=== PATIENT | male | born 1950 | race Caucasian/White ===

== ENCOUNTER 2018-03-02 14:31 | Inpatient (IN) | payer MEDICARE ==
[~2018-03-02] VITALS: Ht 180.3 cm; Wt 95.1 kg
[~2018-03-02 14:31] MED LIST: AMIO400T5 PO; AMLO10TA2 PO; ASPI-496 PO; ASPI-621 PO; ATOR10TA9 PO; ATOR40TA78 PO; CLOP75TA52 PO; FINA5TAB4 PO; FURO-92 PO; GEMF600T3 PO; HYDR12.58 PO; LORA2TAB PO; LOSA1TAB19 PO; LOSA50TA6 PO; METF10002 PO; OXYC-302 PO; OXYC5TAB2 PO; POTA20TA14 PO; POTA20TA6 PO
[2018-03-02] MEDS ORDERED: ASPIRIN 81 MG TABLET CHEW PO ONE (15:00)
[2018-03-02] MEDS ORDERED: PLEASE ENTER HEIGHT AND WEIGHT MC SCH (15:00)
[2018-03-02 15:27] LABS: ALANINE AMINOTRANSFERASE 39 U/L (12-78); ALBUMIN 4.3 g/dL (3.4-5.0); ANION GAP 7 mmol/L (5-15); CALCIUM 9.3 mg/dL (8.5-10.1); CHLORIDE 106 mmol/L (98-107); CREATININE 1.18 mg/dL (0.7-1.3)
[2018-03-02 15:28] LABS: BASOPHILS # (AUTO) 0.05 x10^3/uL (0-0.1); BASOPHILS % (AUTO) 1 % (0-1); EOSINOPHILS # (AUTO) 0.12 x10^3/uL (0-0.4); EOSINOPHILS % (AUTO) 2 % (1-7); LYMPHOCYTES # (AUTO) 2.72 x10^3/uL (1-3.4); LYMPHOCYTES % (AUTO) 39 % (22-44); MD NO; MEAN CORPUSCULAR HEMOGLOBIN 31.6 pg (27.5-34.5); MEAN CORPUSCULAR VOLUME 92.9 fL (81-97); MEAN PLATELET VOLUME 9.7 fL (7.4-10.4); MONOCYTES # (AUTO) 0.67 x10^3/uL (0.2-0.8); MONOCYTES % (AUTO) 10 % (2-9); NEUTROPHILS # (AUTO) 3.49 x10^3/uL (1.8-6.8); NEUTROPHILS % (AUTO) 50 % (42-75); PLATELET COUNT 234 x10^3/uL (130-400); RED BLOOD COUNT 4.98 x10^6/uL (4.38-5.82); RED CELL DISTRIBUTION WIDTH 14.1 % (9.4-14.8)
[2018-03-02 15:31] LABS: ALKALINE PHOSPHATASE 101 U/L (45-117); BILIRUBIN,TOTAL 0.9 mg/dL (0.2-1.0); TOTAL PROTEIN 7.9 g/dL (6.4-8.2); TROPONIN I < 0.015 ng/mL (0.000-0.045)
[2018-03-02] MEDS ORDERED: ASPIRIN 81 MG TABLET CHEW ONE (18:49)
[2018-03-02] MEDS ORDERED: SODIUM CHLORIDE FLUSH 10ML SYR IVF PRN (19:30)
[2018-03-02] MEDS ORDERED: POTA20TA6 PO (19:49)
[2018-03-02] MEDS ORDERED: NITROGLYCERIN 0.4 MG/SPRAY SL PRN (20:00)
[2018-03-02] MEDS ORDERED: LABETALOL 5MG/ML, 20ML IVPush PRN (20:00)
[2018-03-02] MEDS ORDERED: morphine SULFATE 10 MG/ML, 1ML IVPush PRN (20:00)
[2018-03-02] MEDS ORDERED: HYDROcodone/APAP 5/325 TABLET PO PRN (20:00)
[2018-03-02] MEDS ORDERED: ONDANSETRON ODT 4 MG PO PRN (20:00)
[2018-03-02 20:44] LABS: TROPONIN I < 0.015 ng/mL (0.000-0.045)
[2018-03-02 20:50] LABS: HEMOGLOBIN A1C 6.4 % (4.2-6.3)
[2018-03-02] MEDS ORDERED: ATORVASTATIN 40 MG TABLET PO SCH (21:00)
[2018-03-02] MEDS: metFORMIN 500 MG TABLET PO SCH (22:01)
[2018-03-02 22:11] VITALS: BP 150/73
[2018-03-03 01:02] VITALS: BP 132/71
[2018-03-03 03:16] LABS: TROPONIN I < 0.015 ng/mL (0.000-0.045)
[2018-03-03 03:43] LABS: CHOL/HDL RATIO 2.4; LDL/HDL RATIO 0.6 (0.5-3.0)
[2018-03-03] MEDS ORDERED: REGADENOSON 0.4 MG/5 ML SYRINGE ONE (08:00)
[2018-03-03] MEDS ORDERED: ASPIRIN 81 MG TABLET EC PO SCH (09:00)
[2018-03-03] MEDS ORDERED: LOSARTAN 50MG TABLET PO SCH (09:00)
[2018-03-03] MEDS ORDERED: FINASTERIDE 5 MG TABLET PO SCH (09:00)
[2018-03-03] MEDS ORDERED: HYDROCHLOROTHIAZIDE 12.5 MG CAPSULE PO SCH (09:00)
[2018-03-03] MEDS ORDERED: AMLODIPINE 5 MG TABLET PO SCH (09:00)
[2018-03-03] MEDS ORDERED: TEMPLATE NON-FORMULARY MED. (Losartan/Hydrochlorothiazide** (Losartan-Hctz 50-12.5 Mg Tab PO SCH (09:00)
[2018-03-03] MEDS: metFORMIN 500 MG TABLET PO SCH (10:19)
== END 2018-03-03 13:30 | disposition home or self-care (01) | DRG 303 ==
LOC: ED 20:08 → EDIP 20:43 → 5SO 20:47
PROVIDERS: ADMIT Internal Medicine; ATTEND Internal Medicine
DX: I25.110 Atherosclerotic heart disease of native coronary artery with unstable angina pectoris (principal); I48.91 Unspecified atrial fibrillation; I11.9 Hypertensive heart disease without heart failure; E11.9 Type 2 diabetes mellitus without complications; E78.5 Hyperlipidemia, unspecified; N40.0 Benign prostatic hyperplasia without lower urinary tract symptoms; G89.4 Chronic pain syndrome; Z87.891 Personal history of nicotine dependence; Z82.49 Family history of ischemic heart disease and other diseases of the circulatory system; Z79.82 Long term (current) use of aspirin; Z95.1 Presence of aortocoronary bypass graft; Z79.899 Other long term (current) drug therapy; Z91.013 Allergy to seafood
CPT/HCPCS: 36415; 71046; 78452; 80053; 80061; 83036; 84484; 85025; 93005; 93017; 99285; J2785; A9502; C9898